=== PATIENT | female | born 1985 | race Caucasian/White ===

== ENCOUNTER 2017-07-22 15:38 | Emergency (ER) | payer OTHER, MEDICAID ==
[2017-07-22 16:09] VITALS: O2SAT 100
[2017-07-22] MEDS ORDERED: Sodium Chloride 0.9% 1,000 ML IV STA (16:34)
--- NOTE | 2017-07-22 16:45 | ED PDOC ---
HPI: Female Pain Time Seen by Provider: 07/22/17 16:25 Chief Complaint (Nursing): Female Genitourinary Chief Complaint (Provider): Pelvic pain History Per: Patient History/Exam Limitations: no limitations Onset/Duration Of Symptoms: Days (14) Current Symptoms Are (Timing): Still Present Severity: Mild Quality Of Discomfort: Cramping Associated Symptoms: Urinary Symptoms Alleviating Factors: None Additional Complaint(s): 32 year old female presents to ED for evaluation of abdominal cramping pain for 2 weeks. Patient reports she is 10 weeks , A4. Patient states she was spotting 2 weeks ago, just one day very mild. She reports pain is intermittent and today has been more frequent and associated with more pain on the left side. Additionally reports last night when urinating had mild discomfort. Her dentist private practice is Dr Pelayo and she has an appointment for first US next week. Abnormal Vaginal Bleeding: No Past Medical History Reviewed: Historical Data, Nursing Documentation, Vital Signs Vital Signs: Last Vital Signs Temp Pulse 68 07/22/17 16:04 Resp 16 07/22/17 16:04 BP 124/72 07/22/17 16:04 Pulse Ox 100 07/22/17 16:04 - Medical History PMH: No Chronic Diseases - Surgical History Surgical History: (1) - Family History Family History: States: Unknown Family Hx - Living Arrangements Living Arrangements: With Family - Social History Alcohol: None Drugs: Denies - Allergies Allergies/Adverse Reactions: Allergies Allergy/AdvReac Type Severity Reaction Status Date / Time Penicillins Allergy RASH Verified 07/22/17 16:04 Review of Systems ROS Statement: Except As Marked, All Systems Reviewed And Found Negative Genitourinary Female: Positive for: Pelvic Pain Physical Exam - Reviewed Nursing Documentation Reviewed: Yes Vital Signs Reviewed: Yes - Physical Exam Appears: Positive for: Well, Non-toxic, No Acute Distress Head Exam: Positive for: ATRAUMATIC, NORMAL INSPECTION, NORMOCEPHALIC Skin: Positive for: Normal Color, Warm. Negative for: Diaphoresis, Pallor Eye Exam: Positive for: Normal appearance Neck: Positive for: Normal, Painless ROM Cardiovascular/Chest: Positive for: Regular Rate, Rhythm. Negative for: Murmur Respiratory: Positive for: Normal Breath Sounds. Negative for: Wheezing Gastrointestinal/Abdominal: Positive for: Bowel Sounds (active), Soft, Tenderness (mild suprapubic). Negative for: Mass, Distended, Guarding Back: Positive for: Normal Inspection. Negative for: L CVA Tenderness, R CVA Tenderness Extremity: Positive for: Normal ROM. Negative for: Tenderness, Deformity, Swelling Neurologic/Psych: Positive for: Alert, Oriented - Laboratory Results Result Diagrams: 07/22/17 17:25 07/22/17 17:55 - ECG O2 Sat by Pulse Oximetry: 100 Medical Decision Making Medical Decision Making: Impression: pelvic pain Prior records reviewed: none available for review Plan: * Labs * Ultrasound * UA Progress: 1821 US shows Single live intrauterine gestation with mean gestational age of 8 weeks and 2 days. The estimated date of delivery by ultrasound is 03/01/2018. The ultrasound dates correspond with the clinical dates. Suspect 2.0 x 0.9 x 0.7 cm posterior perigestational hemorrhage. Clinical and imaging follow-up is advised.2.5 cm complicated/hemorrhagic cyst in the right ovary. [address] Pelayo Labs reviewed and WNL [address] Pelayo is in the OR with 1900 patient resting comfortably in no distress. vital signs stable. Patient asking for discharge, does not wish to wait for ob callback. Patient given copies of results and feels comfortable going home. 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 Disposition - Clinical Impression Clinical Impression: Threatened in early - Patient ED Disposition Is Patient to be Admitted: No Counseled Patient/Family Regarding: Studies Performed, Diagnosis, Need For Followup, Rx Given - Disposition Referrals: Jeromy Pelayo MD [Staff Provider] - Disposition: Routine/Home Disposition Time: 19:07 Condition: STABLE Additional Instructions: Please follow up with your busser in few days for further evaluation and care Take Tylenol for any pain Instructions: Threatened Miscarriage (ED) Forms: [employer] (Chilean) - POA Present On Arrival: None
--- NOTE | 2017-07-22 18:08 | US ---
PROCEDURE: OB Pelvic Ultrasound HISTORY: with cramping pain, worse on left side COMPARISON: None available. FINDINGS: UTERUS: Gestational sac: Single live intrauterine gestation. Heart rate: 176 bpm. age (Ultrasound estimated): 8 weeks and 2 days. Yesenia-gestational hemorrhage: There is a 2.0 x 0.9 x 0.7 cm hypoechoic area posterior to the gestational sac. Date of delivery (Ultrasound estimated) : 03/01/2018 Uterus measures 11.3 x 0.6 x 6.5 cm. Normal in size and appearance. CERVIX: Long and closed. No cervical abnormality seen. RIGHT OVARY: Measures 3.2 x 3.5 x 2.3 cm. No mass lesion. Normal flow. There is a 2.2 x 1.8 x 2.5 cm complicated/hemorrhagic cyst. LEFT OVARY: Measures 3.6 x 3.1 x 2.0 cm. No solid mass. Normal flow. FREE FLUID: None. OTHER FINDINGS: None. IMPRESSION: 1 Single live intrauterine gestation with mean gestational age of 8 weeks and 2 days. The estimated date of delivery by ultrasound is 03/01/2018. The ultrasound dates correspond with the clinical dates. 2. Suspect 2.0 x 0.9 x 0.7 cm posterior perigestational hemorrhage. Clinical and imaging follow-up is advised. 3. 2.5 cm complicated/hemorrhagic cyst in the right ovary.
[2017-07-22 18:09] LABS: BLOOD UREA NITROGEN 11 mg/dl (7-17); CALCIUM 9.3 mg/dL (8.4-10.2); CARBON DIOXIDE 22 mmol/L (22-30); CHLORIDE 103 mmol/L (98-107); GFR AFRICAN-AMERICAN > 60; GLUCOSE,RANDOM 82 mg/dL (65-105); POTASSIUM 4.1 MMOL/L (3.6-5.0); RBC URINE 2 /hpf (0-3); SODIUM 137 mmol/l (132-148); URINE BILIRUBIN NEGATIVE (NEGATIVE); URINE BLOOD NEGATIVE (NEGATIVE); URINE COLOR YELLOW (YELLOW); URINE GLUCOSE (UA) NEG (Normal); URINE KETONE NEGATIVE (NEGATIVE); URINE LEUKOCYTE ESTERASE NEG Leu/uL (Negative); URINE PROTEIN NEGATIVE (NEGATIVE); URINE UROBILINOGEN 0.2-1.0 mg/dL (0.2-1.0); WBC URINE < 1 /hpf (0-5)
[2017-07-22 18:25] LABS: BASO # 0.1 K/uL (0.0-0.2); BASO % 0.5 % (0.0-2.0); EOS # 0.1 K/uL (0.0-0.7); EOS % 1.3 % (0.0-4.0); HEMATOCRIT 37.3 % (34.0-47.0); LYMPH # 4.3 K/uL (1.0-4.3); LYMPH % 39.7 % (20.0-40.0); MEAN CELL VOLUME 93.2 fl (81.0-99.0); MEAN CORPUSCULAR HEMOGLOBIN 30.7 pg (27.0-31.0); MEAN CORPUSCULAR HGB CONC 32.9 g/dL (33.0-37.0); MEAN PLATELET VOLUME 9.3 fl (7.2-11.7); MONO # 1.2 K/uL (0.0-0.8); MONO % 11.1 % (0.0-10.0); NEUT # 5.2 K/uL (1.8-7.0); NEUT % 47.4 % (50.0-75.0); NRBC % 0.1 % (0.0-0.0); RED CELL DISTRIBUTION WIDTH 13.9 % (11.5-14.5); WHITE BLOOD COUNT 10.9 K/uL (4.8-10.8)
[2017-07-22 19:15] VITALS: BP 125/78; PULSE 60; RESP 14; TEMP 98.3
== END 2017-07-22 19:15 | disposition home or self-care (01) ==
LOC: H.ER 15:38
DX: O20.0 Threatened abortion (principal); N83.201 Unspecified ovarian cyst, right side; Z88.0 Allergy status to penicillin
CPT/HCPCS: 76817; 80048; 81003; 81025; 84702; 85025; 86850; 86900; 99284; J7040

== ENCOUNTER 2017-09-07 17:36 | Emergency (ER) | payer MEDICAID, OTHER ==
[2017-09-07 17:49] VITALS: O2SAT 100
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
[2017-09-07 19:34] LABS: BASO # 0.1 K/uL (0.0-0.2); BASO % 0.9 % (0.0-2.0); EOS # 0.2 K/uL (0.0-0.7); EOS % 1.6 % (0.0-4.0); MEAN CELL VOLUME 95.2 fl (81.0-99.0); MEAN CORPUSCULAR HEMOGLOBIN 31.2 pg (27.0-31.0); MEAN CORPUSCULAR HGB CONC 32.8 g/dL (33.0-37.0); MEAN PLATELET VOLUME 9.3 fl (7.2-11.7); MONO # 1.1 K/uL (0.0-0.8); MONO % 7.6 % (0.0-10.0); NEUT # 8.9 K/uL (1.8-7.0); NEUT % 61.9 % (50.0-75.0); NRBC % 0.1 % (0.0-0.0); RED CELL DISTRIBUTION WIDTH 13.9 % (11.5-14.5); WHITE BLOOD COUNT 14.3 K/uL (4.8-10.8)
[2017-09-07 19:58] LABS: ALB/GLOB RATIO 1.2 (1.0-2.1); ALKALINE PHOSPHATASE 46 U/L (38-126); ALT/SGPT 24 U/L (9-52); AST/SGOT 23 U/L (14-36); BILIRUBIN,TOTAL 0.1 mg/dl (0.2-1.3); BLOOD UREA NITROGEN 13 mg/dl (7-17); CALCIUM 9.2 mg/dL (8.4-10.2); CARBON DIOXIDE 26 mmol/L (22-30); CHLORIDE 104 mmol/L (98-107); GFR AFRICAN-AMERICAN > 60; GLUCOSE,RANDOM 76 mg/dL (65-105); POTASSIUM 4.7 MMOL/L (3.6-5.0); SODIUM 138 mmol/l (132-148); TOTAL PROTEIN 6.9 G/DL (6.3-8.2)
[2017-09-07 20:16] LABS: URINE BACTERIA RARE (<OCC); URINE BILIRUBIN NEGATIVE (NEGATIVE); URINE BLOOD SMALL (NEGATIVE); URINE COLOR YELLOW (YELLOW); URINE GLUCOSE (UA) NEG (Normal); URINE KETONE NEGATIVE (NEGATIVE); URINE LEUKOCYTE ESTERASE NEG Leu/uL (Negative); URINE PROTEIN NEGATIVE (NEGATIVE); URINE UROBILINOGEN 0.2-1.0 mg/dL (0.2-1.0); WBC URINE 1 /hpf (0-5)
[2017-09-07 20:35] LABS: RBC URINE 12 /hpf (0-3)
--- NOTE | 2017-09-07 20:48 | ED PDOC ---
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 Return to ED for worsening/concerning symptoms. Dr. Mathew made aware. Disposition - Clinical Impression Clinical Impression: Threatened - POA Present On Arrival: None - Disposition Disposition: Routine/Home Disposition Time: 20:48 Condition: STABLE Instructions: Threatened Miscarriage (ED) Forms: [employer] (Greek)
[2017-09-07 21:05] VITALS: BP 119/75; PULSE 68; RESP 18; TEMP 98
--- NOTE | 2017-09-08 09:46 | US ---
PROCEDURE: OB Pelvic Ultrasound HISTORY: 15 weeks with vaginal spotting COMPARISON: None available. FINDINGS: UTERUS: Gestational sac: Single intrauterine gestation. Heart rate: 140 bpm. age (Ultrasound estimated): 15 weeks and 5 days Yesenia-gestational hemorrhage: None. Date of delivery (Ultrasound estimated) : 02/24/2018 Placenta is posterior. CERVIX: Long and closed. No cervical abnormality seen. RIGHT OVARY: Not visualized. LEFT OVARY: Not visualized. FREE FLUID: None. OTHER FINDINGS: None. IMPRESSION: Single live intrauterine gestation with mean gestational age of 15 weeks and 5 days. The estimated date of delivery by ultrasound is 02/24/2018. A preliminary report was provided by [employer].
== END 2017-09-07 21:15 | disposition home or self-care (01) ==
LOC: H.ER 17:36
DX: O20.0 Threatened abortion (principal); Z3A.15 15 weeks gestation of pregnancy

== ENCOUNTER 2017-12-29 19:41 | Emergency (ER) | payer OTHER, MEDICAID ==
[2017-12-29] MEDS ORDERED: Lactated Ringer's 1,000 ML IV SCH (20:45)
[2017-12-29 20:47] VITALS: BMI 36.3
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
[2017-12-29 21:13] LABS: URINE BILIRUBIN NEGATIVE (NEGATIVE); URINE BLOOD NEGATIVE (NEGATIVE); URINE CLARITY CLEAR (Clear); URINE COLOR STRAW (YELLOW); URINE GLUCOSE (UA) NEG (Normal); URINE LEUKOCYTE ESTERASE NEG Leu/uL (Negative); URINE NITRATE NEGATIVE (NEGATIVE); URINE PROTEIN NEGATIVE (NEGATIVE); URINE UROBILINOGEN 0.2-1.0 mg/dL (0.2-1.0)
[2017-12-29 21:25] LABS: URINE BACTERIA RARE (<OCC)
[2017-12-30 03:07] VITALS: BP 119/64; PULSE 90
[2017-12-30] MEDS ORDERED: Morphine 4 MG/ML VIAL ONE (04:33)
== END 2017-12-29 22:10 | disposition home or self-care (01) ==
LOC: H.EROB2 19:41
DX: O26.93 Pregnancy related conditions, unspecified, third trimester (principal); R10.2 Pelvic and perineal pain; Z3A.31 31 weeks gestation of pregnancy
CPT/HCPCS: 81003; 96360; 99283; J7120

== ENCOUNTER 2018-02-12 03:39 | Inpatient (IN) | payer OTHER, MEDICAID ==
[2018-02-12 04:26] VITALS: BMI 38.0
[2018-02-12] MEDS ORDERED: cefOXitin 2 GM in Sodium Chloride 0.9% 100 ML IVPB ONE (04:26)
[2018-02-12] MEDS ORDERED: Lactated Ringer's 1,000 ML IV SCH ×2 (04:30)
[2018-02-12 04:52] VITALS: O2SAT 99
[2018-02-12 05:15] LABS: BASO # 0.1 K/uL (0.0-0.2); BASO % 1.2 % (0.0-2.0); EOS # 0.2 K/uL (0.0-0.7); EOS % 1.5 % (0.0-4.0); HEMOGLOBIN 12.5 g/dL (12.0-16.0); LYMPH # 4.1 K/uL (1.0-4.3); LYMPH % 34.9 % (20.0-40.0); MEAN CELL VOLUME 94.7 fl (81.0-99.0); MEAN CORPUSCULAR HEMOGLOBIN 31.7 pg (27.0-31.0); MEAN CORPUSCULAR HGB CONC 33.5 g/dL (33.0-37.0); MEAN PLATELET VOLUME 10.8 fl (7.2-11.7); MONO % 8.3 % (0.0-10.0); NEUT # 6.4 K/uL (1.8-7.0); NEUT % 54.1 % (50.0-75.0); RBC 3.93 Mil/uL (3.80-5.20); RED CELL DISTRIBUTION WIDTH 14.4 % (11.5-14.5); WHITE BLOOD COUNT 11.8 K/uL (4.8-10.8)
[2018-02-12] MEDS ORDERED: Oxytocin 30 units/LR 500ML 30 U/500 ML BAG IV ONE (07:51)
[2018-02-12] MEDS ORDERED: ePHEDrine 50 mg/ml Inj ONE (10:51)
[2018-02-12] MEDS ORDERED: Phenylephrine 10 mg/ml Inj ONE (10:51)
[2018-02-12] MEDS ORDERED: Morphine 1 mg/ml preservative-free Inj(Duramorph) ONE (10:51)
[2018-02-12] MEDS ORDERED: Nalbuphine 20 mg/ml Inj (1 ml) ONE (10:51)
[2018-02-12] MEDS ORDERED: DiphenhydrAMINE 50 mg/ml Inj IVP PRN ×4 (12:56→16:54)
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
--- NOTE | 2018-02-12 15:58 | OBDS ---
DELIVERY PERSONNEL Delivery Doctor: Quique Pelayo MD Fuel Assembler: Shirin Villeda RN Anesthesiologist: Vidal Keita MD MATERNAL INFORMATION Delivery Anesthesia: Spinal Medications in Delivery: Pitocin 30units Estimated Blood Loss (ml): 800 Placenta Cultured: No Maternal Complications: None Provider Comments: delivery of live baby boy 9/9 clear fluid cord with 3 vessels placenta tube s and ovaries LABOR SUMMARY EDC: 02/27/2018 00:00 No. Babies in Womb: 1 Attempted: No Labor Anesthesia: None LABOR INFORMATION Reason for Induction: Not Applicable Oxytocin: N/A Group B Beta Strep: Positive Antibiotics # of Doses: 2 Antibiotics Time of Last Dose: 1020 Steroids Given: None Reason Steroids Not Administered: Not Applicable MEMBRANES Membranes Rupture Method: Spontaneous Rupture of Membranes: 02/12/2018 03:00 Length of Rupture (hrs): 8.50 Amniotic Fluid Color: Clear Amniotic Fluid Amount: Moderate Amniotic Fluid Odor: Normal STAGES OF LABOR Stage 3 hrs: 0 Stage 3 min: 1 VAGINAL DELIVERY Episiotomy: None Laceration Extension: N/A Laceration Type: None CSECTION DELIVERY Primary Indication: Repeat Elective Secondary Indication: Repeat Elective CSection Urgency: Elective CSection Incidence: Repeat CSection Incision: Lower Uterine Transverse BABY A INFORMATION Delivery Date/Time: 02/12/2018 11:30 Method of Delivery: Born in Route : No : N/A Forceps: N/A Vacuum Extraction: N/A Shoulder Dystocia : No SHOULDER DYSTOCIA BABY A Delivery Date/Time: 02/12/2018 11:30 PRESENTATION/POSITION BABY A Presentation: Cephalic Cephalic Presentation: Vertex Breech Presentation: N/A PLACENTA INFORMATION BABY A Placenta Delivery Time : 02/12/2018 11:31 Placenta Method of Delivery: Manual Removal Placenta Status: Delivered SCORES BABY A Heart Rate 1 min: >100 bpm Resp Effort 1 min: Good Cry Reflex Irritability 1 min: Cough or Sneeze or Pulls Away Muscle Tone 1 min: Active Motion Color 1 min: Completely [place] Resuscitation Effort 1 min: Tactile Stimulation SCORE 1 MIN: 10 Heart Rate 5 min: >100 bpm Resp Effort 5 min: Good Cry Reflex Irritability 5 min: Cough or Sneeze or Pulls Away Muscle Tone 5 min: Active Motion Color 5 min: Completely [place] Resuscitation Effort 5 min: Tactile Stimulation SCORE 5 MIN: 10 INFANT INFORMATION BABY A Gestational Age at Delivery: 38.0 Gestational Status: Term Infant Outcome : Liveborn Condition : Stable Infant Sex: Male IDENTIFICATION/MEDS BABY A ID Band Number: [id number] ID Band Location: Left Leg; Left Arm Vitamin K Given : Not Given Erythromycin Given: Not Given WEIGHT/LENGTH BABY A Infant Birthweight (gms): 2960 Infant Weight (lb): 6 Weight (oz): 8 CORD INFORMATION BABY A No. Cord Vessels: 3 Nuchal Cord : N/A Cord Blood Taken: Yes Suction: Mouth; Nose ASSESSMENT BABY A Infant Complications: None Physical Findings at Delivery: Within Normal Limits Respirations: Appears Normal Security Sales Manager/ALS Called : No Infant Care By: Dr. Charles Transferred To: Remains with Mother
[2018-02-12] MEDS ORDERED: Oxycodone/Acetaminophen 5/325 mg Tab PO PRN ×4 (16:03→16:54)
[2018-02-12] MEDS ORDERED: Bisacodyl 5mg EC Tab PO PRN ×2 (16:03→16:54)
[2018-02-12] MEDS: Lactated Ringer's 1,000 ML IV SCH ×2 (19:17→20:26)
[2018-02-13] MEDS: Lactated Ringer's 1,000 ML IV SCH (04:11)
[2018-02-13 11:05] LABS: BASO % 0.2 % (0.0-2.0); EOS # 0.1 K/uL (0.0-0.7); HEMOGLOBIN 11.5 g/dL (12.0-16.0); LYMPH # 1.5 K/uL (1.0-4.3); LYMPH % 12.1 % (20.0-40.0); MEAN CELL VOLUME 94.9 fl (81.0-99.0); MEAN CORPUSCULAR HEMOGLOBIN 31.7 pg (27.0-31.0); MEAN CORPUSCULAR HGB CONC 33.3 g/dL (33.0-37.0); MEAN PLATELET VOLUME 10.2 fl (7.2-11.7); MONO # 0.8 K/uL (0.0-0.8); MONO % 6.6 % (0.0-10.0); NEUT # 10.1 K/uL (1.8-7.0); NEUT % 80.1 % (50.0-75.0); NRBC % 0.1 % (0.0-0.0); RBC 3.63 Mil/uL (3.80-5.20); RED CELL DISTRIBUTION WIDTH 14.6 % (11.5-14.5); WHITE BLOOD COUNT 12.6 K/uL (4.8-10.8)
--- NOTE | 2018-02-13 14:50 | OBPPN ---
Datetime: 02/13/2018 14:47 PP Pain Prov: Within normal limits PP Nausea Prov: Denies PP Flatus Prov: Yes PP BM Prov: No PP Breasts Prov: Normal PP Heart Prov: Normal PP Lungs Prov: Normal PP Abdomen/Uterus Prov: Normal PP Lochia Prov: Normal PP Vulva/Perineum Prov: Normal PP CVA Tenderness Prov: Normal PP Extremities Prov: Normal PP C/S Incision Prov: Normal PP Progress Prov: Normal PP Impression Prov: Normal progression PP Plan Prov: Continue present management PP Progress Note Prov: stable pod1 no complaints continue present care IP PP Procedures: None Vital Signs Provider PP: Reviewed; Within Normal Limits
--- NOTE | 2018-02-14 11:43 | OBPPN ---
Datetime: 02/14/2018 11:40 PP Pain Prov: Within normal limits PP Pain Prov comment: No SOB, chest or leg pains PP Nausea Prov: Denies PP Flatus Prov: Yes PP BM Prov: Yes PP Nausea Prov comment: voiding well PP Breasts Prov: Normal PP Lungs Prov: Normal PP Abdomen/Uterus Prov: Abnormal PP Lochia Prov: Normal PP CVA Tenderness Prov: Normal PP Extremities Prov: Normal PP C/S Incision Prov: Normal PP Progress Prov: Normal PP Comments Phys Exam Prov: breast NT not engorged Abd soft ND soft fundus firm below the umb Incisi on clean and dry no suppt or discharge ext no calf tenderness PP Impression Prov: Normal progression PP Plan Prov: Discharge PP Progress Note Prov: PT request to be d/c home blood work ok, so will comply Instructions given IP PP Procedures: None Vital Signs Provider PP: Reviewed
--- NOTE | 2018-02-14 11:46 | OBDCSUM ---
Datetime: 02/14/2018 11:43 Discharged to, Provider: Home Follow up at, Provider: Dr Pelayo Disch Instr Activity: Bedrest; May be up to bathroom; May be up for meals; May Shower Disch Instr Diet: Regular Discharge Instructions, Provider: Routine instructions given Discharge Diagnosis, Provider: Term Delivered Discharge Time: 02/14/2018 11:43 Follow up in weeks, Provider: 1 wk Disch Referrals: None Contraception discussed, Prov: Yes Disch Activity Restrictions: No exercising; No lifting; No driving; Minimize walking; Minimize stair -climbing; No sexual activity; Nothing in vagina - Pyatt, tampons, douche Discharge Comment, Provider: Continue PO care and pre- vit and iron Contraception after Delivery: Not Planning to Use Datetime: 12/29/2017 22:06 Discharge Diagnosis, Provider: Term Delivered
[2018-02-14 19:06] VITALS: BP 130/84; PULSE 75; RESP 20; TEMP 97.5
== END 2018-02-14 12:50 | disposition home or self-care (01) | DRG 766 ==
LOC: H.EROB2 03:39 → H.L&D 04:26 → H.OB/GYN 15:50
PROVIDERS: ADMIT Specialist; ATTEND Specialist
PROC: 10D00Z1 Extraction of Products of Conception, Low, Open Approach (ICD-10-PCS; principal; 2018-02-12)
PROC: 4A1HXCZ Monitoring of Products of Conception, Cardiac Rate, External Approach (ICD-10-PCS; 2018-02-12)
DX: O34.211 Maternal care for low transverse scar from previous cesarean delivery (principal); Z37.0 Single live birth; N85.8 Other specified noninflammatory disorders of uterus; Z3A.38 38 weeks gestation of pregnancy; Z90.81 Acquired absence of spleen; O42.92 Full-term premature rupture of membranes, unspecified as to length of time between rupture and onset of labor